=== PATIENT | female | born 1950 ===

== ENCOUNTER 2021-06-21 09:43 | Outpatient (CLI) | payer OTHER | END 2021-06-21 09:45 | disposition home or self-care (01) | LOC: TOM 09:43 | DX: R19.4 Change in bowel habit (principal); K62.5 Hemorrhage of anus and rectum ==

== ENCOUNTER 2024-02-12 06:30 | Day surgery (SDC) | payer OTHER ==
[~2024-02-12 06:30] MED LIST: RELAFEN DS1000 MG PO; RISEDRONATE SOD35 M1 PO; SIMVASTATIN80 MG PO; SYNTHROID75 MCG PO
[2024-02-12] MEDS ORDERED: CEFAZOLIN SODIUM 1,000 MG VIAL IV SCH (13:15)
== END 2024-02-12 15:35 | disposition home or self-care (01) ==
LOC: CIR.AMB 06:30
PROVIDERS: ATTEND Surgery Surgery of the Hand
DX: M67.843 Other specified disorders of tendon, right hand (principal)